=== PATIENT | male | born 1940 | race Caucasian/White ===

== ENCOUNTER 2017-06-18 17:59 | Inpatient (IN) ==
[2017-06-18] MEDS ORDERED: MORPHINE 2 MG/1 ML SYRINGE IM PRN (20:39)
[2017-06-18] MEDS ORDERED: ONDANSETRON 4 MG/2 ML VIAL IV PRN (20:43)
[2017-06-18] MEDS ORDERED: METOPROLOL TARTRATE 5 MG/5 ML VIAL IV PRN ×2 (20:44)
[2017-06-18] MEDS: SODIUM CHLORIDE 0.9% 1,000 ML IV SCH (21:30)
[2017-06-18] MEDS: MORPHINE 2 MG/1 ML SYRINGE IV PRN (23:45)
[2017-06-19 04:32] LABS: Basophils # 0.1 10*3/uL (0.0-0.2); Basophils % 0.3 % (0.0-0.8); Eosinophils % 0.1 % (0.00-10.9); Hematocrit 29.2 VOL% (42.0-52.0); Hemoglobin 8.7 GM/DL (14.0-18.0); Immature Granulocytes % 1.6 %; Immature Granulocytes Absolute 0.28 #; Lymphocytes # 1.3 10*3/uL (1.4-4.0); Lymphocytes % 7.3 % (21.2-54.2); Mean Corpuscular HGB Conc 29.8 GM/DL (32-36); Mean Corpuscular Hemoglobin 22 PG (27-34); Mean Corpuscular Volume 72.6 FL (87-102); Mean Platelet Volume 9.7 FL (9.6-12.0); Monocytes # 1.4 10*3/uL (0.11-0.8); Monocytes % 7.7 % (1.7-12.7); Neutrophils # 14.8 10*3/uL (1.4-7.4); Platelet Count 489 T/CUMM (130-400); Red Blood Count 4.02 MC/CUMM (3.8-5.5); White Blood Count 17.8 T/CUMM (4-12)
[2017-06-19] MEDS: MORPHINE 2 MG/1 ML SYRINGE IV PRN ×2 (04:45→20:55)
[2017-06-19 05:04] LABS: Anisocytosis 1+; Band Neutrophils 4 % (0-10); Lymphocytes 10 % (20-55); Platelet Estimate Normal; Segmented Neutrophils 84 % (50-85); Total Cells Counted 100
[2017-06-19 05:05] LABS: Atypical Lymphocytes Few; Microcytosis 3+; Polychromasia Slight
[2017-06-19 05:07] LABS: Bilirubin,Total 0.7 MG/DL (0.2-1.0); Calcium 8.3 MG/DL (8.5-10.1); Osmolality,Calculated 261.4 MOS/KG (273-304); Potassium 3.6 MMOL/L (3.5-5.1); Total Protein 5.7 G/DL (6.4-8.3)
[2017-06-19] MEDS ORDERED: VANCOMYCIN INJ 1,000 MG in SODIUM CHLORIDE 0.9% 250 ML IV ONE (06:00)
[2017-06-19] MEDS ORDERED: ALPRAZolam 0.5 MG TABLET PO PRN (08:35)
[2017-06-19] MEDS ORDERED: NITROGLYCERIN SL 0.4 MG TABLET SL PRN (08:35)
[2017-06-19] MEDS ORDERED: TAMSULOSIN 0.4 MG CAPSULE PO SCH (09:00)
[2017-06-19] MEDS ORDERED: CARVEDILOL 6.25 MG TABLET PO SCH (09:00)
[2017-06-19] MEDS ORDERED: ALBUTEROL 2.5 MG/3 ML NEB RESP TX PRN (09:10)
[2017-06-19] MEDS ORDERED: guaiFENesin/CODEINE 5 ML LIQUID PO PRN (09:10)
[2017-06-19 09:23] LABS: Troponin I Only 0.023 NG/ML (0.00-0.045)
[2017-06-19] MEDS ORDERED: PANTOPRAZOLE 40 MG VIAL IV ONE (09:34)
[2017-06-19] MEDS: LEVOFLOXACIN INJ 750 MG in PREMIX 1 EACH IV SCH (09:46)
[2017-06-19] MEDS: ALBUTEROL/IPRATROPIUM 3 ML NEB RESP TX SCH ×2 (12:01→20:27)
[2017-06-19] MEDS: PIPERACILLIN/TAZOBACTAM 3,375 MG in SODIUM CHLORIDE 0.9% 100 ML IV SCH ×2 (12:29→23:00)
[2017-06-19] MEDS ORDERED: HEPARIN 5,000 UNIT/1 ML VIAL ONE ×2 (12:37→17:41)
[2017-06-19] MEDS ORDERED: LIDOCAINE 2% TOP JELLY 20 ML VIAL INTRAURETH ONE (12:37)
[2017-06-19] MEDS ORDERED: VANCOMYCIN 500 MG VIAL ONE ×2 (12:37→17:41)
[2017-06-19] MEDS ORDERED: TISSUE ADHESIVE 1 EACH APPLICATOR TOP ONE (12:37)
[2017-06-19] MEDS ORDERED: THROMBIN TOPICAL (RECOMBINANT) 5,000 UNIT VIAL TOP ONE ×2 (12:38→17:41)
[2017-06-19] MEDS ORDERED: HEPARIN/NACL 0.9% 2 UNITS/ML 3,000 ML IV ONE (12:49)
[2017-06-19] MEDS ORDERED: SODIUM CHLORIDE 0.9% 1,000 ML IV PRN (14:18)
[2017-06-19] MEDS ORDERED: IPRATROPIUM 500 MCG/2.5 ML NEB RESP TX PRN (16:08)
[2017-06-19 17:00] LABS: Hemoglobin 7.9 GM/DL (14.0-18.0)
[2017-06-19] MEDS ORDERED: HYDROmorphone 2 MG/1 ML VIAL ONE (17:01)
[2017-06-19] MEDS ORDERED: ONDANSETRON 4 MG/2 ML VIAL ONE ×3 (17:01→19:53)
[2017-06-19] MEDS: CARVEDILOL 6.25 MG TABLET PO SCH ×2 (17:05→22:47)
[2017-06-19] MEDS: ASPIRIN EC 81 MG TABLET PO SCH (17:05)
[2017-06-19] MEDS: TAMSULOSIN 0.4 MG CAPSULE PO SCH (17:06)
[2017-06-19] MEDS: buPROPion 75 MG TABLET PO SCH ×2 (17:06→22:47)
[2017-06-19] MEDS ORDERED: HYDROmorphone 2 MG/1 ML VIAL IV PRN (17:11)
[2017-06-19] MEDS ORDERED: ONDANSETRON 4 MG/2 ML VIAL IV PRN (17:11)
[2017-06-19] MEDS ORDERED: HEPARIN 10,000 UNIT/10 ML VIAL ONE ×2 (17:31→19:53)
[2017-06-19] MEDS ORDERED: fentaNYL 100 MCG/2 ML VIAL ONE ×2 (17:31→19:53)
[2017-06-19] MEDS ORDERED: PHENYLEPHRINE 10 MG/1 ML VIAL IV ONE ×2 (17:31→19:53)
[2017-06-19] MEDS ORDERED: MIDAZOLAM 2 MG/2 ML VIAL ONE (17:31)
[2017-06-19] MEDS ORDERED: PROPOFOL 200 MG/20 ML VIAL IV ONE ×2 (17:31→19:52)
[2017-06-19] MEDS ORDERED: SODIUM CHLORIDE 0.9% 2,000 ML IV ONE (17:32)
[2017-06-19] MEDS ORDERED: PROTAMINE SULFATE 50 MG/5 ML VIAL IV ONE ×2 (17:32→19:53)
[2017-06-19] MEDS ORDERED: SEVOFLURANE 1 UNIT/15 MINUTE INH ONE ×2 (17:32→19:53)
[2017-06-19] MEDS ORDERED: SODIUM CHLORIDE 0.9% 250 ML IV ONE ×2 (17:32→19:53)
[2017-06-19] MEDS ORDERED: ALBUTEROL/IPRATROPIUM 3 ML NEB RESP TX ONE ×2 (19:52→19:55)
[2017-06-19] MEDS ORDERED: GLYCOPYRROLATE 0.4 MG/2 ML VIAL ONE ×2 (19:53)
[2017-06-19] MEDS ORDERED: ROCURONIUM 100 MG/10 ML VIAL IV ONE (19:53)
[2017-06-19] MEDS ORDERED: NEOSTIGMINE 10 MG/10 ML VIAL ONE (19:53)
[2017-06-19] MEDS: SODIUM CHLORIDE 0.9% 1,000 ML IV SCH (22:28)
[2017-06-19] MEDS: PANTOPRAZOLE 40 MG TABLET PO SCH (22:47)
[2017-06-19] MEDS: DEXTROSE 5% NACL 0.45% 1,000 ML IV SCH (22:47)
[2017-06-19] MEDS: ATORVASTATIN 10 MG TABLET PO SCH (22:47)
[2017-06-20] MEDS: ALBUTEROL/IPRATROPIUM 3 ML NEB RESP TX SCH ×4 (00:03→19:38)
[2017-06-20 05:20] LABS: Calcium 7.2 MG/DL (8.5-10.1); Osmolality,Calculated 274.7 MOS/KG (273-304)
[2017-06-20 05:25] LABS: VLDL CHOLESTEROL 17.4 MG/DL
[2017-06-20 05:35] LABS: Basophils % 0.2 % (0.0-0.8); Eosinophils % 0.2 % (0.00-10.9); Hematocrit 26.5 VOL% (42.0-52.0); Hemoglobin 7.8 GM/DL (14.0-18.0); Immature Granulocytes % 1.4 %; Immature Granulocytes Absolute 0.23 #; Lymphocytes # 1.1 10*3/uL (1.4-4.0); Lymphocytes % 6.6 % (21.2-54.2); Mean Corpuscular HGB Conc 29.4 GM/DL (32-36); Mean Corpuscular Hemoglobin 22 PG (27-34); Mean Corpuscular Volume 75.1 FL (87-102); Mean Platelet Volume 9.9 FL (9.6-12.0); Monocytes # 1.4 10*3/uL (0.11-0.8); Monocytes % 8.6 % (1.7-12.7); NRBC # 0.02 10*3/uL; Neutrophils # 13.4 10*3/uL (1.4-7.4); Platelet Count 385 T/CUMM (130-400); Red Blood Count 3.53 MC/CUMM (3.8-5.5); Red Cell Distribution Width 24.2 % (9.3-17.3); White Blood Count 16.1 T/CUMM (4-12)
[2017-06-20 05:42] LABS: Giant Platelets Few; Hypochromasia 1+; Ovalocytes Slight; Platelet Estimate Adequate
[2017-06-20 05:43] LABS: Microcytosis Slight
[2017-06-20] MEDS: PIPERACILLIN/TAZOBACTAM 3,375 MG in SODIUM CHLORIDE 0.9% 100 ML IV SCH ×3 (06:11→23:54)
[2017-06-20] MEDS: DEXTROSE 5% NACL 0.45% 1,000 ML IV SCH (07:00)
[2017-06-20] MEDS ORDERED: ACLIDINIUM BROMIDE 400 MCG IH SCH (09:00)
[2017-06-20] MEDS: CLOPIDOGREL 75 MG TABLET PO SCH (09:09)
[2017-06-20] MEDS: buPROPion 75 MG TABLET PO SCH ×2 (09:09→20:28)
[2017-06-20] MEDS: PANTOPRAZOLE 40 MG TABLET PO SCH ×2 (09:09→20:28)
[2017-06-20] MEDS: ASPIRIN EC 81 MG TABLET PO SCH (09:09)
[2017-06-20] MEDS: CARVEDILOL 6.25 MG TABLET PO SCH (09:09)
[2017-06-20] MEDS: LEVOFLOXACIN INJ 750 MG in PREMIX 1 EACH IV SCH (09:09)
[2017-06-20] MEDS: TAMSULOSIN 0.4 MG CAPSULE PO SCH ×2 (09:09→09:31)
[2017-06-20] MEDS: ATORVASTATIN 10 MG TABLET PO SCH (20:28)
[2017-06-20] MEDS: CARVEDILOL 3.125 MG TABLET PO SCH (20:28)
[2017-06-21] MEDS: ALBUTEROL/IPRATROPIUM 3 ML NEB RESP TX SCH ×4 (01:37→19:47)
[2017-06-21 05:17] LABS: Basophils % 0.3 % (0.0-0.8); Eosinophils % 0.1 % (0.00-10.9); Hematocrit 24.9 VOL% (42.0-52.0); Immature Granulocytes % 1.2 %; Immature Granulocytes Absolute 0.17 #; Lymphocytes % 7.4 % (21.2-54.2); Mean Corpuscular HGB Conc 28.1 GM/DL (32-36); Mean Corpuscular Hemoglobin 21 PG (27-34); Mean Corpuscular Volume 76.1 FL (87-102); Mean Platelet Volume 9.9 FL (9.6-12.0); Monocytes # 1.1 10*3/uL (0.11-0.8); Monocytes % 7.8 % (1.7-12.7); NRBC # 0.03 10*3/uL; Neutrophils # 11.6 10*3/uL (1.4-7.4); Neutrophils % 83.2 % (38.7-73.9); Platelet Count 314 T/CUMM (130-400); Red Blood Count 3.27 MC/CUMM (3.8-5.5); Red Cell Distribution Width 24.1 % (9.3-17.3); White Blood Count 13.9 T/CUMM (4-12)
[2017-06-21] MEDS: PIPERACILLIN/TAZOBACTAM 3,375 MG in SODIUM CHLORIDE 0.9% 100 ML IV SCH ×2 (06:40→16:22)
[2017-06-21] MEDS ORDERED: FUROSEMIDE 20 MG/2 ML VIAL IV ONE (09:03)
[2017-06-21] MEDS: CARVEDILOL 3.125 MG TABLET PO SCH (09:22)
[2017-06-21] MEDS: TAMSULOSIN 0.4 MG CAPSULE PO SCH (10:05)
[2017-06-21] MEDS: PANTOPRAZOLE 40 MG TABLET PO SCH ×2 (10:05→21:22)
[2017-06-21] MEDS: ASPIRIN EC 81 MG TABLET PO SCH (10:05)
[2017-06-21] MEDS: MULTIVITAMIN (INTRINSIC) CAPSULE PO SCH (10:05)
[2017-06-21] MEDS: CLOPIDOGREL 75 MG TABLET PO SCH (10:05)
[2017-06-21] MEDS: LEVOFLOXACIN 750 MG TABLET PO SCH (10:05)
[2017-06-21] MEDS: buPROPion 75 MG TABLET PO SCH ×2 (10:05→21:22)
[2017-06-21] MEDS: ATORVASTATIN 10 MG TABLET PO SCH (21:21)
[2017-06-21] MEDS: NIACIN 500 MG TABLET PO SCH (21:21)
[2017-06-22] MEDS: PIPERACILLIN/TAZOBACTAM 3,375 MG in SODIUM CHLORIDE 0.9% 100 ML IV SCH ×3 (01:00→17:13)
[2017-06-22] MEDS: ALBUTEROL/IPRATROPIUM 3 ML NEB RESP TX SCH ×4 (01:59→19:33)
[2017-06-22 05:12] LABS: Basophils % 0.2 % (0.0-0.8); Eosinophils % 0.1 % (0.00-10.9); Hematocrit 30.5 VOL% (42.0-52.0); Hemoglobin 9.5 GM/DL (14.0-18.0); Immature Granulocytes % 0.8 %; Lymphocytes # 0.9 10*3/uL (1.4-4.0); Lymphocytes % 6.7 % (21.2-54.2); Mean Corpuscular HGB Conc 31.1 GM/DL (32-36); Mean Corpuscular Hemoglobin 23 PG (27-34); Mean Corpuscular Volume 74.2 FL (87-102); Mean Platelet Volume 10.1 FL (9.6-12.0); Monocytes # 0.8 10*3/uL (0.11-0.8); Monocytes % 6.4 % (1.7-12.7); NRBC # 0.02 10*3/uL; Neutrophils # 11.2 10*3/uL (1.4-7.4); Neutrophils % 85.8 % (38.7-73.9); Platelet Count 336 T/CUMM (130-400); Red Blood Count 4.11 MC/CUMM (3.8-5.5); Red Cell Distribution Width 22.7 % (9.3-17.3); White Blood Count 13.1 T/CUMM (4-12)
[2017-06-22 05:39] LABS: Calcium 7.6 MG/DL (8.5-10.1); Potassium 3.5 MMOL/L (3.5-5.1)
[2017-06-22 05:48] LABS: Giant Platelets Few; Hypochromasia 1+; Microcytosis Slight; Ovalocytes Slight; Platelet Estimate Adequate
[2017-06-22] MEDS: TAMSULOSIN 0.4 MG CAPSULE PO SCH (08:58)
[2017-06-22] MEDS: ASPIRIN EC 81 MG TABLET PO SCH (08:58)
[2017-06-22] MEDS: LEVOFLOXACIN 750 MG TABLET PO SCH (08:58)
[2017-06-22] MEDS: buPROPion 75 MG TABLET PO SCH ×2 (08:59→21:20)
[2017-06-22] MEDS: MULTIVITAMIN (INTRINSIC) CAPSULE PO SCH (08:59)
[2017-06-22] MEDS: CLOPIDOGREL 75 MG TABLET PO SCH (08:59)
[2017-06-22] MEDS: PANTOPRAZOLE 40 MG TABLET PO SCH ×2 (08:59→21:20)
[2017-06-22] MEDS ORDERED: FUROSEMIDE 40 MG/4 ML VIAL IV ONE (13:00)
[2017-06-22] MEDS: NIACIN 500 MG TABLET PO SCH (21:20)
[2017-06-22] MEDS: ATORVASTATIN 10 MG TABLET PO SCH (21:20)
[2017-06-23] MEDS: ALBUTEROL/IPRATROPIUM 3 ML NEB RESP TX SCH ×4 (00:49→19:58)
[2017-06-23] MEDS: PIPERACILLIN/TAZOBACTAM 3,375 MG in SODIUM CHLORIDE 0.9% 100 ML IV SCH (07:05)
[2017-06-23] MEDS: CLOPIDOGREL 75 MG TABLET PO SCH (09:27)
[2017-06-23] MEDS: buPROPion 75 MG TABLET PO SCH ×2 (09:27→21:59)
[2017-06-23] MEDS: PANTOPRAZOLE 40 MG TABLET PO SCH ×2 (09:27→21:59)
[2017-06-23] MEDS: LEVOFLOXACIN 750 MG TABLET PO SCH (09:27)
[2017-06-23] MEDS: TAMSULOSIN 0.4 MG CAPSULE PO SCH (09:27)
[2017-06-23] MEDS: ASPIRIN EC 81 MG TABLET PO SCH (09:27)
[2017-06-23] MEDS: MULTIVITAMIN (INTRINSIC) CAPSULE PO SCH (09:27)
[2017-06-23] MEDS: cefTRIAXone 1,000 MG in SYRINGE 1 EACH IV SCH (11:35)
[2017-06-23] MEDS: NIACIN 500 MG TABLET PO SCH (21:59)
[2017-06-23] MEDS: ATORVASTATIN 10 MG TABLET PO SCH (21:59)
[2017-06-24] MEDS: ALBUTEROL/IPRATROPIUM 3 ML NEB RESP TX SCH ×4 (01:47→20:22)
[2017-06-24 03:51] LABS: Basophils % 0.3 % (0.0-0.8); Eosinophils % 0.3 % (0.00-10.9); Hematocrit 31.8 VOL% (42.0-52.0); Hemoglobin 9.4 GM/DL (14.0-18.0); Immature Granulocytes % 1.4 %; Immature Granulocytes Absolute 0.15 #; Lymphocytes # 0.9 10*3/uL (1.4-4.0); Lymphocytes % 7.8 % (21.2-54.2); Mean Corpuscular HGB Conc 29.6 GM/DL (32-36); Mean Corpuscular Hemoglobin 22 PG (27-34); Mean Corpuscular Volume 74.5 FL (87-102); Mean Platelet Volume 9.6 FL (9.6-12.0); Monocytes # 0.8 10*3/uL (0.11-0.8); Monocytes % 6.9 % (1.7-12.7); Neutrophils # 9.1 10*3/uL (1.4-7.4); Neutrophils % 83.3 % (38.7-73.9); Platelet Count 315 T/CUMM (130-400); Red Blood Count 4.27 MC/CUMM (3.8-5.5); Red Cell Distribution Width 24.3 % (9.3-17.3); White Blood Count 10.9 T/CUMM (4-12)
[2017-06-24 04:14] LABS: Anisocytosis 2+; Hypochromasia 3+
[2017-06-24 04:15] LABS: Poikilocytosis 1+; Target Cells 1+
[2017-06-24 04:16] LABS: Polychromasia Slight
[2017-06-24 04:25] LABS: Osmolality,Calculated 263.2 MOS/KG (273-304); Potassium 3.4 MMOL/L (3.5-5.1)
[2017-06-24] MEDS: LEVOFLOXACIN 750 MG TABLET PO SCH (08:58)
[2017-06-24] MEDS: TAMSULOSIN 0.4 MG CAPSULE PO SCH (08:58)
[2017-06-24] MEDS: ASPIRIN EC 81 MG TABLET PO SCH (08:58)
[2017-06-24] MEDS: CLOPIDOGREL 75 MG TABLET PO SCH (08:58)
[2017-06-24] MEDS: buPROPion 75 MG TABLET PO SCH ×2 (08:59→20:50)
[2017-06-24] MEDS: MULTIVITAMIN (INTRINSIC) CAPSULE PO SCH (08:59)
[2017-06-24] MEDS: PANTOPRAZOLE 40 MG TABLET PO SCH ×2 (08:59→20:51)
[2017-06-24] MEDS: cefTRIAXone 1,000 MG in SYRINGE 1 EACH IV SCH (11:13)
[2017-06-24] MEDS: VANCOMYCIN INJ 1,250 MG in SODIUM CHLORIDE 0.9% 250 ML IV SCH (16:52)
[2017-06-24] MEDS ORDERED: POTASSIUM CHLORIDE 20 MEQ PACK PO ONE (17:14)
[2017-06-24] MEDS: ATORVASTATIN 10 MG TABLET PO SCH (20:50)
[2017-06-24] MEDS: NIACIN 500 MG TABLET PO SCH (20:51)
[2017-06-25] MEDS: ALBUTEROL/IPRATROPIUM 3 ML NEB RESP TX SCH ×4 (01:36→20:04)
[2017-06-25] MEDS: VANCOMYCIN INJ 1,250 MG in SODIUM CHLORIDE 0.9% 250 ML IV SCH ×2 (07:30→18:14)
[2017-06-25] MEDS: LEVOFLOXACIN 750 MG TABLET PO SCH (08:38)
[2017-06-25] MEDS: MULTIVITAMIN (INTRINSIC) CAPSULE PO SCH (08:38)
[2017-06-25] MEDS: PANTOPRAZOLE 40 MG TABLET PO SCH ×2 (08:38→20:06)
[2017-06-25] MEDS: CLOPIDOGREL 75 MG TABLET PO SCH (08:38)
[2017-06-25] MEDS: buPROPion 75 MG TABLET PO SCH ×2 (08:38→20:06)
[2017-06-25] MEDS: TAMSULOSIN 0.4 MG CAPSULE PO SCH (08:38)
[2017-06-25] MEDS: ASPIRIN EC 81 MG TABLET PO SCH (08:38)
[2017-06-25 10:50] LABS: Calcium 7.9 MG/DL (8.5-10.1); Osmolality,Calculated 267.1 MOS/KG (273-304); Potassium 3.2 MMOL/L (3.5-5.1)
[2017-06-25 11:07] LABS: Basophils % 0.4 % (0.0-0.8); Eosinophils # 0.1 10*3/uL (0.0-0.87); Eosinophils % 0.7 % (0.00-10.9); Hematocrit 32.2 VOL% (42.0-52.0); Hemoglobin 9.9 GM/DL (14.0-18.0); Immature Granulocytes % 1.3 %; Immature Granulocytes Absolute 0.14 #; Lymphocytes # 0.7 10*3/uL (1.4-4.0); Lymphocytes % 6.3 % (21.2-54.2); Mean Corpuscular HGB Conc 30.7 GM/DL (32-36); Mean Corpuscular Hemoglobin 23 PG (27-34); Mean Corpuscular Volume 74.4 FL (87-102); Mean Platelet Volume 9.6 FL (9.6-12.0); Monocytes % 9.4 % (1.7-12.7); Neutrophils # 8.9 10*3/uL (1.4-7.4); Neutrophils % 81.9 % (38.7-73.9); Platelet Count 354 T/CUMM (130-400); Red Blood Count 4.33 MC/CUMM (3.8-5.5); Red Cell Distribution Width 24.2 % (9.3-17.3); White Blood Count 10.8 T/CUMM (4-12)
[2017-06-25 11:25] LABS: Hypochromasia 2+; Microcytosis 1+; Target Cells Slight
[2017-06-25 11:26] LABS: Ovalocytes Slight; Platelet Estimate Normal; Spherocytes Few
[2017-06-25] MEDS ORDERED: FUROSEMIDE 20 MG/2 ML VIAL IV ONE (11:32)
[2017-06-25] MEDS: cefTRIAXone 1,000 MG in SYRINGE 1 EACH IV SCH (11:45)
[2017-06-25] MEDS: POTASSIUM CHLORIDE 20 MEQ TABLET PO PRN ×3 (12:55→22:32)
[2017-06-25] MEDS: ATORVASTATIN 10 MG TABLET PO SCH (20:06)
[2017-06-25] MEDS: NIACIN 500 MG TABLET PO SCH (20:06)
[2017-06-26] MEDS: POTASSIUM CHLORIDE 20 MEQ TABLET PO PRN ×2 (00:38→02:37)
[2017-06-26] MEDS: ALBUTEROL/IPRATROPIUM 3 ML NEB RESP TX SCH ×2 (00:58→08:13)
[2017-06-26] MEDS: VANCOMYCIN INJ 1,250 MG in SODIUM CHLORIDE 0.9% 250 ML IV SCH (06:25)
[2017-06-26] MEDS ORDERED: BISACODYL 5 MG TABLET PO ONE (08:23)
[2017-06-26] MEDS: CLOPIDOGREL 75 MG TABLET PO SCH (09:16)
[2017-06-26] MEDS: MULTIVITAMIN (INTRINSIC) CAPSULE PO SCH (09:16)
[2017-06-26] MEDS: LEVOFLOXACIN 750 MG TABLET PO SCH (09:16)
[2017-06-26] MEDS: ASPIRIN EC 81 MG TABLET PO SCH (09:16)
[2017-06-26] MEDS: PANTOPRAZOLE 40 MG TABLET PO SCH (09:17)
[2017-06-26] MEDS: buPROPion 75 MG TABLET PO SCH (09:17)
[2017-06-26] MEDS: TAMSULOSIN 0.4 MG CAPSULE PO SCH (09:17)
[2017-06-26 10:59] VITALS: BP 135/54
== END 2017-06-26 12:37 | disposition swing bed (61) | DRG 268 ==
LOC: N.CC 19:39 → SUPCPDRO 19:39 → N.3E 06-20 23:32
PROVIDERS: ADMIT Surgery; ATTEND Surgery
PROC: IRERAAA (2017-06-19 13:05)

== ENCOUNTER 2017-07-03 09:32 | Inpatient (IN) ==
[2017-07-03 14:19] LABS: Basophils % 0.3 % (0.0-0.8); Eosinophils # 0.1 10*3/uL (0.0-0.87); Eosinophils % 0.5 % (0.00-10.9); Hemoglobin 9.8 GM/DL (14.0-18.0); Immature Granulocytes Absolute 0.13 #; Lymphocytes # 1.2 10*3/uL (1.4-4.0); Lymphocytes % 8.9 % (21.2-54.2); Mean Corpuscular HGB Conc 30.6 GM/DL (32-36); Mean Corpuscular Hemoglobin 23 PG (27-34); Mean Corpuscular Volume 74.4 FL (87-102); Mean Platelet Volume 8.4 FL (9.6-12.0); Monocytes # 1.2 10*3/uL (0.11-0.8); Monocytes % 8.6 % (1.7-12.7); Neutrophils # 10.9 10*3/uL (1.4-7.4); Neutrophils % 80.7 % (38.7-73.9); Platelet Count 517 T/CUMM (130-400); Red Cell Distribution Width 24.5 % (9.3-17.3); White Blood Count 13.5 T/CUMM (4-12)
[2017-07-03 14:46] LABS: Albumin 2.3 G/DL (3.4-5.0); Bilirubin,Total 0.6 MG/DL (0.2-1.0); Calcium 8.3 MG/DL (8.5-10.1); Osmolality,Calculated 263.4 MOS/KG (273-304); Potassium 3.7 MMOL/L (3.5-5.1); Total Protein 7.1 G/DL (6.4-8.3)
[2017-07-03 15:01] LABS: Apearance,Urine Slightly Hazy (Clear); Bilirubin,Urine Negative (Negative); Blood, Urine Negative (Negative); Glucose,Urine (UA) Negative (Negative); Ketones,Urine Negative (Negative); Mucus,Urine Many /LPF (Occasional); Nitrite,Urine Negative (Negative); Protein,Urine Negative; Urine Color Yellow (Yellow); Urine Specific Gravity 1.019 (1.001-1.035); Urine Urobilinogen < 2.0 EU/DL (0.2-1.0); WBC,Urine 3 /HPF (0-6)
[2017-07-03] MEDS: FLUCONAZOLE INJ 100 MG in IV BAG 1 EACH IV SCH (16:44)
[2017-07-03] MEDS: SODIUM CHLORIDE 0.9% 1,000 ML IV SCH (16:44)
[2017-07-03] MEDS ORDERED: POTASSIUM CHLORIDE 20 MEQ TABLET PO PRN (17:11)
[2017-07-03] MEDS ORDERED: IPRATROPIUM 500 MCG/2.5 ML NEB RESP TX PRN (17:11)
[2017-07-03] MEDS ORDERED: ALBUTEROL 2.5 MG/3 ML NEB RESP TX PRN (17:11)
[2017-07-03] MEDS ORDERED: NITROGLYCERIN SL 0.4 MG TABLET SL PRN (17:11)
[2017-07-03] MEDS ORDERED: ALPRAZolam 0.5 MG TABLET PO PRN (17:11)
[2017-07-03] MEDS ORDERED: chlordiazePOXIDE 10 MG CAPSULE PO PRN (17:30)
[2017-07-03] MEDS: VANCOMYCIN INJ 1,250 MG in SODIUM CHLORIDE 0.9% 250 ML IV SCH (18:01)
[2017-07-03] MEDS: PANTOPRAZOLE 40 MG TABLET PO SCH (22:25)
[2017-07-03] MEDS: chlordiazePOXIDE 10 MG CAPSULE PO SCH (22:25)
[2017-07-03] MEDS: ATORVASTATIN 10 MG TABLET PO SCH (22:25)
[2017-07-03] MEDS: buPROPion 75 MG TABLET PO SCH (22:25)
[2017-07-04] MEDS: VANCOMYCIN INJ 1,250 MG in SODIUM CHLORIDE 0.9% 250 ML IV SCH ×2 (06:16→17:30)
[2017-07-04 06:20] LABS: Basophils # 0.1 10*3/uL (0.0-0.2); Basophils % 0.4 % (0.0-0.8); Eosinophils # 0.1 10*3/uL (0.0-0.87); Eosinophils % 0.7 % (0.00-10.9); Hematocrit 29.7 VOL% (42.0-52.0); Immature Granulocytes % 0.8 %; Immature Granulocytes Absolute 0.11 #; Lymphocytes # 1.1 10*3/uL (1.4-4.0); Lymphocytes % 8.1 % (21.2-54.2); Mean Corpuscular HGB Conc 30.3 GM/DL (32-36); Mean Corpuscular Hemoglobin 23 PG (27-34); Mean Corpuscular Volume 75.6 FL (87-102); Mean Platelet Volume 8.7 FL (9.6-12.0); Monocytes # 1.2 10*3/uL (0.11-0.8); Monocytes % 8.7 % (1.7-12.7); Neutrophils # 11.3 10*3/uL (1.4-7.4); Neutrophils % 81.3 % (38.7-73.9); Platelet Count 486 T/CUMM (130-400); Red Blood Count 3.93 MC/CUMM (3.8-5.5); Red Cell Distribution Width 24.5 % (9.3-17.3); White Blood Count 13.9 T/CUMM (4-12)
[2017-07-04 06:47] LABS: Giant Platelets Few; Hypochromasia 1+; Microcytosis Slight; Ovalocytes Slight; Platelet Estimate Adequate
[2017-07-04 07:03] LABS: Calcium 8.1 MG/DL (8.5-10.1); Potassium 3.9 MMOL/L (3.5-5.1); Thyroid Stimulating Hormone 1.56 uIU/ml (0.358-3.74)
[2017-07-04] MEDS: TAMSULOSIN 0.4 MG CAPSULE PO SCH (08:48)
[2017-07-04] MEDS: CLOPIDOGREL 75 MG TABLET PO SCH (08:48)
[2017-07-04] MEDS: ASPIRIN EC 81 MG TABLET PO SCH (08:48)
[2017-07-04] MEDS: chlordiazePOXIDE 10 MG CAPSULE PO SCH ×3 (08:49→21:52)
[2017-07-04] MEDS: PANTOPRAZOLE 40 MG TABLET PO SCH ×2 (08:49→21:52)
[2017-07-04] MEDS: buPROPion 75 MG TABLET PO SCH ×2 (08:49→21:52)
[2017-07-04] MEDS: SODIUM CHLORIDE 0.9% 1,000 ML IV SCH (11:18)
[2017-07-04] MEDS: FLUCONAZOLE INJ 100 MG in IV BAG 1 EACH IV SCH (14:27)
[2017-07-04] MEDS: MULTIVITAMIN (INTRINSIC) CAPSULE PO SCH (17:29)
[2017-07-04] MEDS: ATORVASTATIN 10 MG TABLET PO SCH (21:52)
[2017-07-04] MEDS: NIACIN 500 MG TABLET PO SCH (21:52)
[2017-07-04] MEDS: BUDESONIDE/FORMOTEROL 160-4.5 INHALER 6 GM INH SCH (21:53)
[2017-07-05] MEDS: VANCOMYCIN INJ 1,250 MG in SODIUM CHLORIDE 0.9% 250 ML IV SCH ×2 (05:25→19:08)
[2017-07-05] MEDS: SODIUM CHLORIDE 0.9% 1,000 ML IV SCH ×2 (05:27→07:27)
[2017-07-05] MEDS: MULTIVITAMIN (INTRINSIC) CAPSULE PO SCH (08:32)
[2017-07-05] MEDS: chlordiazePOXIDE 10 MG CAPSULE PO SCH ×3 (08:32→21:30)
[2017-07-05] MEDS: BUDESONIDE/FORMOTEROL 160-4.5 INHALER 6 GM INH SCH ×2 (08:32→21:29)
[2017-07-05] MEDS: PANTOPRAZOLE 40 MG TABLET PO SCH ×2 (08:32→21:29)
[2017-07-05] MEDS: buPROPion 75 MG TABLET PO SCH ×2 (08:32→21:29)
[2017-07-05] MEDS: TAMSULOSIN 0.4 MG CAPSULE PO SCH (08:32)
[2017-07-05] MEDS: CLOPIDOGREL 75 MG TABLET PO SCH (08:32)
[2017-07-05] MEDS: ASPIRIN EC 81 MG TABLET PO SCH (08:32)
[2017-07-05] MEDS: FLUCONAZOLE INJ 100 MG in IV BAG 1 EACH IV SCH (14:40)
[2017-07-05] MEDS: NIACIN 500 MG TABLET PO SCH (21:28)
[2017-07-05] MEDS: ATORVASTATIN 10 MG TABLET PO SCH (21:29)
[2017-07-06] MEDS: VANCOMYCIN INJ 1,250 MG in SODIUM CHLORIDE 0.9% 250 ML IV SCH ×2 (06:24→18:22)
[2017-07-06 06:41] LABS: Basophils # 0.1 10*3/uL (0.0-0.2); Basophils % 0.4 % (0.0-0.8); Eosinophils # 0.1 10*3/uL (0.0-0.87); Eosinophils % 0.7 % (0.00-10.9); Hematocrit 30.2 VOL% (42.0-52.0); Hemoglobin 9.1 GM/DL (14.0-18.0); Immature Granulocytes % 0.5 %; Immature Granulocytes Absolute 0.06 #; Lymphocytes # 1.1 10*3/uL (1.4-4.0); Lymphocytes % 9.1 % (21.2-54.2); Mean Corpuscular HGB Conc 30.1 GM/DL (32-36); Mean Corpuscular Hemoglobin 23 PG (27-34); Mean Corpuscular Volume 76.1 FL (87-102); Mean Platelet Volume 8.9 FL (9.6-12.0); Monocytes # 1.1 10*3/uL (0.11-0.8); Monocytes % 9.7 % (1.7-12.7); Neutrophils # 9.3 10*3/uL (1.4-7.4); Neutrophils % 79.6 % (38.7-73.9); Platelet Count 440 T/CUMM (130-400); Red Blood Count 3.97 MC/CUMM (3.8-5.5); Red Cell Distribution Width 24.4 % (9.3-17.3); White Blood Count 11.7 T/CUMM (4-12)
[2017-07-06 07:07] LABS: Giant Platelets Few; Hypochromasia 1+; Microcytosis Slight; Ovalocytes Slight; Platelet Estimate Adequate
[2017-07-06 07:17] LABS: Calcium 7.9 MG/DL (8.5-10.1); Osmolality,Calculated 272.7 MOS/KG (273-304); Potassium 3.6 MMOL/L (3.5-5.1)
[2017-07-06] MEDS: PANTOPRAZOLE 40 MG TABLET PO SCH ×2 (09:51→21:10)
[2017-07-06] MEDS: TAMSULOSIN 0.4 MG CAPSULE PO SCH (09:51)
[2017-07-06] MEDS: ASPIRIN EC 81 MG TABLET PO SCH (09:51)
[2017-07-06] MEDS: CLOPIDOGREL 75 MG TABLET PO SCH (09:52)
[2017-07-06] MEDS: MULTIVITAMIN (INTRINSIC) CAPSULE PO SCH (09:52)
[2017-07-06] MEDS: BUDESONIDE/FORMOTEROL 160-4.5 INHALER 6 GM INH SCH ×2 (09:52→21:11)
[2017-07-06] MEDS: buPROPion 75 MG TABLET PO SCH ×2 (09:52→21:11)
[2017-07-06] MEDS: chlordiazePOXIDE 10 MG CAPSULE PO SCH (10:47)
[2017-07-06] MEDS: RIFAMPIN 300 MG CAPSULE PO SCH ×2 (12:42→21:10)
[2017-07-06] MEDS: NYSTATIN 500,000 UNIT/5 ML UDCUP SWISH/SWAL SCH ×4 (12:42→21:11)
[2017-07-06] MEDS: FLUCONAZOLE INJ 100 MG in IV BAG 1 EACH IV SCH (15:59)
[2017-07-06] MEDS: ATORVASTATIN 10 MG TABLET PO SCH (21:10)
[2017-07-06] MEDS: NIACIN 500 MG TABLET PO SCH (21:11)
[2017-07-07] MEDS: VANCOMYCIN INJ 1,250 MG in SODIUM CHLORIDE 0.9% 250 ML IV SCH ×2 (05:58→17:58)
[2017-07-07] MEDS: CLOPIDOGREL 75 MG TABLET PO SCH (10:52)
[2017-07-07] MEDS: RIFAMPIN 300 MG CAPSULE PO SCH ×2 (10:53→20:31)
[2017-07-07] MEDS: PANTOPRAZOLE 40 MG TABLET PO SCH ×2 (10:53→20:31)
[2017-07-07] MEDS: MULTIVITAMIN (INTRINSIC) CAPSULE PO SCH (10:53)
[2017-07-07] MEDS: buPROPion 75 MG TABLET PO SCH ×2 (10:53→20:31)
[2017-07-07] MEDS: ASPIRIN EC 81 MG TABLET PO SCH (10:53)
[2017-07-07] MEDS: TAMSULOSIN 0.4 MG CAPSULE PO SCH (10:54)
[2017-07-07] MEDS: NYSTATIN 500,000 UNIT/5 ML UDCUP SWISH/SWAL SCH ×4 (10:54→20:32)
[2017-07-07] MEDS: BUDESONIDE/FORMOTEROL 160-4.5 INHALER 6 GM INH SCH ×2 (14:46→20:34)
[2017-07-07] MEDS: QUEtiapine 25 MG TABLET PO SCH (20:31)
[2017-07-07] MEDS: NIACIN 500 MG TABLET PO SCH (20:31)
[2017-07-07] MEDS: ATORVASTATIN 10 MG TABLET PO SCH (20:31)
[2017-07-07] MEDS ORDERED: HALOPERIDOL 5 MG/ML AMP IM SCH (21:00)
[2017-07-08 06:28] LABS: Calcium 7.8 MG/DL (8.5-10.1); Osmolality,Calculated 273.5 MOS/KG (273-304)
[2017-07-08] MEDS: VANCOMYCIN INJ 1,250 MG in SODIUM CHLORIDE 0.9% 250 ML IV SCH (07:11)
[2017-07-08] MEDS ORDERED: POTASSIUM CHLORIDE 20 MEQ TABLET PO PRN (07:30)
[2017-07-08] MEDS: ASPIRIN EC 81 MG TABLET PO SCH (10:19)
[2017-07-08] MEDS: TAMSULOSIN 0.4 MG CAPSULE PO SCH (10:20)
[2017-07-08] MEDS: NYSTATIN 500,000 UNIT/5 ML UDCUP SWISH/SWAL SCH ×4 (10:20→20:45)
[2017-07-08] MEDS: CLOPIDOGREL 75 MG TABLET PO SCH (10:21)
[2017-07-08] MEDS: PANTOPRAZOLE 40 MG TABLET PO SCH ×2 (10:21→20:45)
[2017-07-08] MEDS: RIFAMPIN 300 MG CAPSULE PO SCH ×2 (10:21→20:45)
[2017-07-08] MEDS: BUDESONIDE/FORMOTEROL 160-4.5 INHALER 6 GM INH SCH ×2 (10:23→20:47)
[2017-07-08] MEDS: buPROPion 75 MG TABLET PO SCH ×2 (10:23→20:45)
[2017-07-08] MEDS: MULTIVITAMIN (INTRINSIC) CAPSULE PO SCH (10:23)
[2017-07-08] MEDS ORDERED: POTASSIUM CHLORIDE 20 MEQ TABLET PO ONE (16:00)
[2017-07-08] MEDS: ATORVASTATIN 10 MG TABLET PO SCH (20:45)
[2017-07-08] MEDS: NIACIN 500 MG TABLET PO SCH (20:45)
[2017-07-08] MEDS: QUEtiapine 25 MG TABLET PO SCH (20:45)
[2017-07-09] MEDS: VANCOMYCIN INJ 1,250 MG in SODIUM CHLORIDE 0.9% 250 ML IV SCH ×2 (00:20→18:04)
[2017-07-09 06:39] LABS: Basophils % 0.4 % (0.0-0.8); Eosinophils # 0.1 10*3/uL (0.0-0.87); Hematocrit 30.8 VOL% (42.0-52.0); Hemoglobin 9.4 GM/DL (14.0-18.0); Immature Granulocytes % 0.8 %; Immature Granulocytes Absolute 0.08 #; Lymphocytes # 1.1 10*3/uL (1.4-4.0); Mean Corpuscular HGB Conc 30.5 GM/DL (32-36); Mean Corpuscular Hemoglobin 23 PG (27-34); Mean Corpuscular Volume 74.6 FL (87-102); Mean Platelet Volume 8.7 FL (9.6-12.0); Monocytes % 9.8 % (1.7-12.7); Neutrophils # 7.7 10*3/uL (1.4-7.4); Platelet Count 339 T/CUMM (130-400); Red Blood Count 4.13 MC/CUMM (3.8-5.5); Red Cell Distribution Width 24.2 % (9.3-17.3)
[2017-07-09 07:10] LABS: Calcium 8.1 MG/DL (8.5-10.1); Osmolality,Calculated 270.7 MOS/KG (273-304); Potassium 3.8 MMOL/L (3.5-5.1)
[2017-07-09 07:12] LABS: Hypochromasia 1+; Ovalocytes Slight; Platelet Estimate Adequate
[2017-07-09 07:13] LABS: Giant Platelets Few; Microcytosis Slight
[2017-07-09] MEDS: RIFAMPIN 300 MG CAPSULE PO SCH ×2 (09:14→21:01)
[2017-07-09] MEDS: buPROPion 75 MG TABLET PO SCH ×2 (09:14→21:01)
[2017-07-09] MEDS: MULTIVITAMIN (INTRINSIC) CAPSULE PO SCH (09:14)
[2017-07-09] MEDS: PANTOPRAZOLE 40 MG TABLET PO SCH ×2 (09:14→21:01)
[2017-07-09] MEDS: ASPIRIN EC 81 MG TABLET PO SCH (09:15)
[2017-07-09] MEDS: NYSTATIN 500,000 UNIT/5 ML UDCUP SWISH/SWAL SCH ×4 (09:15→21:01)
[2017-07-09] MEDS: CLOPIDOGREL 75 MG TABLET PO SCH (09:15)
[2017-07-09] MEDS: TAMSULOSIN 0.4 MG CAPSULE PO SCH (09:15)
[2017-07-09] MEDS: BUDESONIDE/FORMOTEROL 160-4.5 INHALER 6 GM INH SCH ×2 (09:21→22:00)
[2017-07-09] MEDS ORDERED: TUBERCULIN SKIN TEST 0.1 ML SYRINGE INTRADERM ONE (10:00)
[2017-07-09] MEDS: ATORVASTATIN 10 MG TABLET PO SCH (21:00)
[2017-07-09] MEDS: NIACIN 500 MG TABLET PO SCH (21:00)
[2017-07-09] MEDS: QUEtiapine 25 MG TABLET PO SCH (21:01)
[2017-07-10 07:09] LABS: Calcium 8.1 MG/DL (8.5-10.1); Osmolality,Calculated 266.1 MOS/KG (273-304); Potassium 3.5 MMOL/L (3.5-5.1)
[2017-07-10] MEDS: PANTOPRAZOLE 40 MG TABLET PO SCH (09:21)
[2017-07-10] MEDS: RIFAMPIN 300 MG CAPSULE PO SCH (09:21)
[2017-07-10] MEDS: buPROPion 75 MG TABLET PO SCH (09:21)
[2017-07-10] MEDS: TAMSULOSIN 0.4 MG CAPSULE PO SCH (09:21)
[2017-07-10] MEDS: CLOPIDOGREL 75 MG TABLET PO SCH (09:22)
[2017-07-10] MEDS: ASPIRIN EC 81 MG TABLET PO SCH (09:22)
[2017-07-10] MEDS: MULTIVITAMIN (INTRINSIC) CAPSULE PO SCH (09:22)
[2017-07-10] MEDS: BUDESONIDE/FORMOTEROL 160-4.5 INHALER 6 GM INH SCH (09:29)
[2017-07-10] MEDS: NYSTATIN 500,000 UNIT/5 ML UDCUP SWISH/SWAL SCH ×2 (09:29→13:19)
[2017-07-10] MEDS: VANCOMYCIN INJ 1,250 MG in SODIUM CHLORIDE 0.9% 250 ML IV SCH (12:16)
[2017-07-10 13:39] VITALS: BP 104/58
== END 2017-07-10 15:55 | disposition swing bed (61) | DRG 871 ==
LOC: N.5E 13:30
PROVIDERS: ADMIT Surgery; ATTEND Surgery

== ENCOUNTER 2017-07-30 22:54 | Inpatient (IN) ==
[2017-07-30] MEDS ORDERED: SODIUM CHLORIDE 0.9% 1,000 ML IV STA (23:34)
[2017-07-30] MEDS ORDERED: ACETAMINOPHEN 325 MG TABLET PO ONE (23:34)
[2017-07-30] MEDS ORDERED: ACETAMINOPHEN 325 MG TABLET ONE (23:42)
[2017-07-31 00:07] LABS: Basophils % 0.2 % (0.0-0.8); Eosinophils % 0.1 % (0.00-10.9); Hematocrit 32.8 VOL% (42.0-52.0); Immature Granulocytes % 0.6 %; Mean Corpuscular HGB Conc 30.5 GM/DL (32-36); Mean Corpuscular Hemoglobin 23 PG (27-34); Mean Corpuscular Volume 76.6 FL (87-102); Mean Platelet Volume 9.1 FL (9.6-12.0); Monocytes # 0.9 10*3/uL (0.11-0.8); Monocytes % 5.3 % (1.7-12.7); Neutrophils # 14.1 10*3/uL (1.4-7.4); Neutrophils % 87.8 % (38.7-73.9); Platelet Count 301 T/CUMM (130-400); Red Blood Count 4.28 MC/CUMM (3.8-5.5); White Blood Count 16.1 T/CUMM (4-12)
[2017-07-31 00:34] LABS: Apearance,Urine CLEAR (Clear); Bilirubin,Urine Negative (Negative); Blood, Urine Negative (Negative); Glucose,Urine (UA) Negative (Negative); Ketones,Urine Negative (Negative); Mucus,Urine Occasional /LPF (Occasional); Nitrite,Urine Negative (Negative); Protein,Urine Negative; RBC,Urine <1 /HPF (0-4); Urine Color Yellow (Yellow); Urine Specific Gravity 1.012 (1.001-1.035); Urine Urobilinogen < 2.0 EU/DL (0.2-1.0); WBC,Urine 2 /HPF (0-6)
[2017-07-31 00:36] LABS: Albumin 2.3 G/DL (3.4-5.0); Bilirubin,Total 0.5 MG/DL (0.2-1.0); Calcium 8.3 MG/DL (8.5-10.1); Osmolality,Calculated 263.4 MOS/KG (273-304); Potassium 4.3 MMOL/L (3.5-5.1)
[2017-07-31] MEDS ORDERED: VANCOMYCIN INJ 1,000 MG in SODIUM CHLORIDE 0.9% 250 ML IV STA (01:11)
[2017-07-31] MEDS ORDERED: ONDANSETRON 4 MG/2 ML VIAL IV PRN (01:15)
[2017-07-31] MEDS ORDERED: ACETAMINOPHEN 325 MG TABLET PO PRN (01:15)
[2017-07-31 01:17] LABS: INR 1.1; PT Patient Result 11.4 SECS; Partial Thromboplastin Time 37.3 SECS (0-40)
[2017-07-31] MEDS ORDERED: VANCOMYCIN 1,000 MG VIAL ONE (01:18)
[2017-07-31 08:09] LABS: Basophils % 0.2 % (0.0-0.8); Eosinophils % 0.3 % (0.00-10.9); Hematocrit 32.4 VOL% (42.0-52.0); Hemoglobin 10.1 GM/DL (14.0-18.0); Immature Granulocytes % 0.5 %; Immature Granulocytes Absolute 0.08 #; Lymphocytes # 1.1 10*3/uL (1.4-4.0); Lymphocytes % 6.7 % (21.2-54.2); Mean Corpuscular HGB Conc 31.2 GM/DL (32-36); Mean Corpuscular Hemoglobin 24 PG (27-34); Mean Corpuscular Volume 76.1 FL (87-102); Mean Platelet Volume 8.9 FL (9.6-12.0); Monocytes % 6.4 % (1.7-12.7); Neutrophils # 13.6 10*3/uL (1.4-7.4); Neutrophils % 85.9 % (38.7-73.9); Platelet Count 281 T/CUMM (130-400); Red Blood Count 4.26 MC/CUMM (3.8-5.5); Red Cell Distribution Width 22.2 % (9.3-17.3); White Blood Count 15.9 T/CUMM (4-12)
[2017-07-31] MEDS: PANTOPRAZOLE 40 MG TABLET PO SCH ×2 (08:25→21:08)
[2017-07-31 08:28] LABS: Giant Platelets Few; Hypochromasia 1+; Microcytosis Slight; Platelet Estimate Adequate
[2017-07-31] MEDS ORDERED: NITROGLYCERIN SL 0.4 MG TABLET SL PRN (10:43)
[2017-07-31] MEDS ORDERED: POTASSIUM CHLORIDE 20 MEQ TABLET PO PRN (10:43)
[2017-07-31] MEDS: VANCOMYCIN INJ 1,000 MG in SODIUM CHLORIDE 0.9% 250 ML IV SCH (14:15)
[2017-07-31] MEDS: BUDESONIDE/FORMOTEROL 160-4.5 INHALER 6 GM INH SCH (21:08)
[2017-07-31] MEDS: ATORVASTATIN 10 MG TABLET PO SCH (21:08)
[2017-07-31] MEDS: buPROPion 75 MG TABLET PO SCH (21:08)
[2017-08-01] MEDS: VANCOMYCIN INJ 1,000 MG in SODIUM CHLORIDE 0.9% 250 ML IV SCH ×2 (02:17→14:18)
[2017-08-01] MEDS ORDERED: ISOSULFAN BLUE 5 ML VIAL SUBCUT ONE (08:11)
[2017-08-01] MEDS ORDERED: BUPIVACAINE 0.5% 50 ML VIAL ONE (08:12)
[2017-08-01] MEDS: PANTOPRAZOLE 40 MG TABLET PO SCH ×3 (08:15→20:49)
[2017-08-01] MEDS: ASPIRIN EC 81 MG TABLET PO SCH (08:15)
[2017-08-01] MEDS: CLOPIDOGREL 75 MG TABLET PO SCH (08:15)
[2017-08-01] MEDS: TAMSULOSIN 0.4 MG CAPSULE PO SCH (08:15)
[2017-08-01] MEDS: BUDESONIDE/FORMOTEROL 160-4.5 INHALER 6 GM INH SCH ×2 (08:16→20:54)
[2017-08-01] MEDS: buPROPion 75 MG TABLET PO SCH ×2 (08:16→20:49)
[2017-08-01] MEDS ORDERED: ONDANSETRON 4 MG/2 ML VIAL ONE ×2 (09:32→09:58)
[2017-08-01] MEDS ORDERED: SEVOFLURANE 1 UNIT/15 MINUTE INH ONE (09:32)
[2017-08-01] MEDS ORDERED: ETOMIDATE 40 MG/20 ML VIAL IV ONE (09:32)
[2017-08-01] MEDS ORDERED: fentaNYL 100 MCG/2 ML VIAL ONE (09:32)
[2017-08-01] MEDS ORDERED: MEPERIDINE 25 MG/1 ML VIAL ONE (09:58)
[2017-08-01] MEDS ORDERED: HYDROmorphone 2 MG/1 ML VIAL IV PRN (10:00)
[2017-08-01] MEDS ORDERED: MEPERIDINE 25 MG/1 ML VIAL IV PRN (10:00)
[2017-08-01] MEDS ORDERED: ONDANSETRON 4 MG/2 ML VIAL IV PRN (10:00)
[2017-08-01] MEDS: ATORVASTATIN 10 MG TABLET PO SCH (20:49)
[2017-08-02] MEDS: VANCOMYCIN INJ 1,250 MG in SODIUM CHLORIDE 0.9% 250 ML IV SCH ×2 (01:23→14:23)
[2017-08-02 05:33] LABS: Basophils % 0.4 % (0.0-0.8); Eosinophils # 0.1 10*3/uL (0.0-0.87); Eosinophils % 1.7 % (0.00-10.9); Hematocrit 28.4 VOL% (42.0-52.0); Hemoglobin 8.5 GM/DL (14.0-18.0); Immature Granulocytes % 0.6 %; Immature Granulocytes Absolute 0.05 #; Lymphocytes # 1.4 10*3/uL (1.4-4.0); Lymphocytes % 17.8 % (21.2-54.2); Mean Corpuscular HGB Conc 29.9 GM/DL (32-36); Mean Corpuscular Hemoglobin 24 PG (27-34); Mean Corpuscular Volume 78.7 FL (87-102); Mean Platelet Volume 9.5 FL (9.6-12.0); Monocytes # 0.9 10*3/uL (0.11-0.8); Monocytes % 11.9 % (1.7-12.7); Neutrophils # 5.3 10*3/uL (1.4-7.4); Neutrophils % 67.6 % (38.7-73.9); Platelet Count 239 T/CUMM (130-400); Red Blood Count 3.61 MC/CUMM (3.8-5.5); Red Cell Distribution Width 21.5 % (9.3-17.3); White Blood Count 7.8 T/CUMM (4-12)
[2017-08-02 06:10] LABS: Calcium 8.5 MG/DL (8.5-10.1); Osmolality,Calculated 272.7 MOS/KG (273-304); Potassium 4.4 MMOL/L (3.5-5.1)
[2017-08-02] MEDS: ASPIRIN EC 81 MG TABLET PO SCH (09:09)
[2017-08-02] MEDS: CLOPIDOGREL 75 MG TABLET PO SCH (09:10)
[2017-08-02] MEDS: TAMSULOSIN 0.4 MG CAPSULE PO SCH (09:10)
[2017-08-02] MEDS: BUDESONIDE/FORMOTEROL 160-4.5 INHALER 6 GM INH SCH ×2 (09:11→21:01)
[2017-08-02] MEDS: buPROPion 75 MG TABLET PO SCH ×2 (09:11→21:01)
[2017-08-02] MEDS: PANTOPRAZOLE 40 MG TABLET PO SCH ×2 (09:11→21:01)
[2017-08-02] MEDS: MEGESTROL 40 MG TABLET PO SCH ×2 (14:20→21:01)
[2017-08-02] MEDS: ATORVASTATIN 10 MG TABLET PO SCH (21:01)
[2017-08-03] MEDS: VANCOMYCIN INJ 1,250 MG in SODIUM CHLORIDE 0.9% 250 ML IV SCH (01:44)
[2017-08-03] MEDS: CLOPIDOGREL 75 MG TABLET PO SCH (08:37)
[2017-08-03] MEDS: buPROPion 75 MG TABLET PO SCH ×2 (08:37→21:22)
[2017-08-03] MEDS: TAMSULOSIN 0.4 MG CAPSULE PO SCH (08:37)
[2017-08-03] MEDS: PANTOPRAZOLE 40 MG TABLET PO SCH ×2 (08:37→21:21)
[2017-08-03] MEDS: MEGESTROL 40 MG TABLET PO SCH ×3 (08:49→21:22)
[2017-08-03] MEDS: ASPIRIN EC 81 MG TABLET PO SCH (08:49)
[2017-08-03] MEDS: BUDESONIDE/FORMOTEROL 160-4.5 INHALER 6 GM INH SCH ×2 (08:49→21:22)
[2017-08-03] MEDS: AMPICILLIN/SULBACTAM 3,000 MG in SODIUM CHLORIDE 0.9% 100 ML IV SCH ×2 (10:28→17:20)
[2017-08-03] MEDS: ATORVASTATIN 10 MG TABLET PO SCH (21:22)
[2017-08-04] MEDS: AMPICILLIN/SULBACTAM 3,000 MG in SODIUM CHLORIDE 0.9% 100 ML IV SCH ×3 (00:29→17:11)
[2017-08-04] MEDS: TAMSULOSIN 0.4 MG CAPSULE PO SCH (08:47)
[2017-08-04] MEDS: PANTOPRAZOLE 40 MG TABLET PO SCH ×2 (08:47→20:36)
[2017-08-04] MEDS: MEGESTROL 40 MG TABLET PO SCH ×3 (08:47→20:36)
[2017-08-04] MEDS: ASPIRIN EC 81 MG TABLET PO SCH (08:47)
[2017-08-04] MEDS: CLOPIDOGREL 75 MG TABLET PO SCH (08:47)
[2017-08-04] MEDS: buPROPion 75 MG TABLET PO SCH ×2 (08:48→20:36)
[2017-08-04] MEDS: BUDESONIDE/FORMOTEROL 160-4.5 INHALER 6 GM INH SCH ×2 (08:48→20:36)
[2017-08-04] MEDS: ATORVASTATIN 10 MG TABLET PO SCH (20:36)
[2017-08-05] MEDS: AMPICILLIN/SULBACTAM 3,000 MG in SODIUM CHLORIDE 0.9% 100 ML IV SCH ×3 (01:00→17:07)
[2017-08-05 05:06] LABS: Hematocrit 27.6 VOL% (42.0-52.0); Hemoglobin 8.7 GM/DL (14.0-18.0)
[2017-08-05] MEDS: BUDESONIDE/FORMOTEROL 160-4.5 INHALER 6 GM INH SCH ×2 (08:52→20:30)
[2017-08-05] MEDS: CLOPIDOGREL 75 MG TABLET PO SCH (08:52)
[2017-08-05] MEDS: MEGESTROL 40 MG TABLET PO SCH ×3 (08:52→20:30)
[2017-08-05] MEDS: buPROPion 75 MG TABLET PO SCH ×2 (08:52→20:30)
[2017-08-05] MEDS: ASPIRIN EC 81 MG TABLET PO SCH (08:52)
[2017-08-05] MEDS: TAMSULOSIN 0.4 MG CAPSULE PO SCH (08:52)
[2017-08-05] MEDS: PANTOPRAZOLE 40 MG TABLET PO SCH ×2 (08:52→20:30)
[2017-08-05] MEDS: ATORVASTATIN 10 MG TABLET PO SCH (20:30)
[2017-08-06] MEDS: AMPICILLIN/SULBACTAM 3,000 MG in SODIUM CHLORIDE 0.9% 100 ML IV SCH ×2 (00:37→08:49)
[2017-08-06] MEDS: BUDESONIDE/FORMOTEROL 160-4.5 INHALER 6 GM INH SCH ×2 (08:48→20:14)
[2017-08-06] MEDS: TAMSULOSIN 0.4 MG CAPSULE PO SCH (08:48)
[2017-08-06] MEDS: ASPIRIN EC 81 MG TABLET PO SCH (08:49)
[2017-08-06] MEDS: MEGESTROL 40 MG TABLET PO SCH ×3 (08:49→20:14)
[2017-08-06] MEDS: buPROPion 75 MG TABLET PO SCH ×2 (08:49→20:14)
[2017-08-06] MEDS: CLOPIDOGREL 75 MG TABLET PO SCH (08:49)
[2017-08-06] MEDS: PANTOPRAZOLE 40 MG TABLET PO SCH ×2 (08:49→20:14)
[2017-08-06] MEDS: ERTAPENEM 1,000 MG in SODIUM CHLORIDE 0.9% 100 ML IV SCH (13:02)
[2017-08-07] MEDS: BUDESONIDE/FORMOTEROL 160-4.5 INHALER 6 GM INH SCH ×2 (09:30→20:31)
[2017-08-07] MEDS: TAMSULOSIN 0.4 MG CAPSULE PO SCH (09:31)
[2017-08-07] MEDS: CLOPIDOGREL 75 MG TABLET PO SCH (09:31)
[2017-08-07] MEDS: buPROPion 75 MG TABLET PO SCH ×2 (09:31→20:31)
[2017-08-07] MEDS: ASPIRIN EC 81 MG TABLET PO SCH (09:31)
[2017-08-07] MEDS: PANTOPRAZOLE 40 MG TABLET PO SCH ×2 (09:31→20:31)
[2017-08-07] MEDS: MEGESTROL 40 MG TABLET PO SCH ×3 (09:31→20:31)
[2017-08-07] MEDS: ERTAPENEM 1,000 MG in SODIUM CHLORIDE 0.9% 100 ML IV SCH (12:05)
[2017-08-08] MEDS: ASPIRIN EC 81 MG TABLET PO SCH (10:14)
[2017-08-08] MEDS: TAMSULOSIN 0.4 MG CAPSULE PO SCH (10:14)
[2017-08-08] MEDS: PANTOPRAZOLE 40 MG TABLET PO SCH (10:15)
[2017-08-08] MEDS: buPROPion 75 MG TABLET PO SCH (10:15)
[2017-08-08] MEDS: MEGESTROL 40 MG TABLET PO SCH ×2 (10:15→16:12)
[2017-08-08] MEDS: CLOPIDOGREL 75 MG TABLET PO SCH (10:15)
[2017-08-08] MEDS: BUDESONIDE/FORMOTEROL 160-4.5 INHALER 6 GM INH SCH (10:20)
[2017-08-08 11:30] VITALS: BP 104/68
[2017-08-08] MEDS: ERTAPENEM 1,000 MG in SODIUM CHLORIDE 0.9% 100 ML IV SCH (12:15)
== END 2017-08-08 17:26 | disposition home health service (06) | DRG 857 ==
LOC: EDUNIT# → EDBD → N.ED 22:54 → N.EDINP 07-31 01:15 → N.3E 07-31 02:01
PROVIDERS: ADMIT Surgery; ATTEND Surgery

== ENCOUNTER 2021-11-14 16:02 | Inpatient (IN) ==
[2021-11-14] MEDS ORDERED: ONDANSETRON 4 MG/2 ML VIAL IV STA (19:36)
[2021-11-14] MEDS ORDERED: LACTATED RINGERS 1,000 ML IV ONE (19:39)
[2021-11-14 19:55] LABS: Basophils % 0.2 % (0.0-0.8); Eosinophils % 0.1 % (0.00-10.9); Hematocrit 37.3 VOL% (42.0-52.0); Hemoglobin 11.8 GM/DL (14.0-18.0); Immature Granulocytes % 0.6 %; Immature Granulocytes Absolute 0.13 #; Lymphocytes # 0.7 10*3/uL (1.4-4.0); Lymphocytes % 3.3 % (21.2-54.2); Mean Corpuscular HGB Conc 31.6 GM/DL (32-36); Mean Corpuscular Volume 85.7 FL (87-102); Mean Platelet Volume 11.1 FL (9.6-12.0); Monocytes # 0.6 10*3/uL (0.11-0.8); Monocytes % 2.9 % (1.7-12.7); Neutrophils % 92.9 % (38.7-73.9); Platelet Count 87 T/CUMM (130-400); Red Blood Count 4.35 MC/CUMM (3.8-5.5); Red Cell Distribution Width 16.5 % (9.3-17.3)
[2021-11-14 20:16] LABS: Lymphocytes 2 % (20-55); Total Cells Counted 100
[2021-11-14 20:20] LABS: Platelet Estimate Decreased
[2021-11-14 20:24] LABS: Alanine Aminotransferase 18 U/L (16-61); Albumin 2.3 G/DL (3.4-5.0); Alkaline Phosphatase 155 U/L (45-117); Aspartate Amino Transferase 42 U/L (0-37); Blood Urea Nitrogen 36 MG/DL (7-18); Calcium 8.8 MG/DL (8.5-10.1); Carbon Dioxide 29 MMOL/L (21-32); Chloride 101 MMOL/L (98-107); Glucose 111 MG/DL (74-106); Osmolality,Calculated 283.7 MOS/KG (273-304); Potassium 3.8 MMOL/L (3.5-5.1); Sodium 138 MMOL/L (136-145); Total Protein 6.1 G/DL (6.4-8.2)
[2021-11-14] MEDS ORDERED: SODIUM CHLORIDE 0.9% 1,000 ML IV STA (20:28)
[2021-11-14] MEDS ORDERED: PIPERACILLIN/TAZOBACTAM 3,375 MG in SODIUM CHLORIDE 0.9% 100 ML IV STA (20:28)
[2021-11-14] MEDS ORDERED: SODIUM CHLORIDE 0.9% 100 ML IV STA (21:09)
[2021-11-14] MEDS ORDERED: DOPamine 800 MG/250 ML PREMIX IV ONE (21:57)
[2021-11-14] MEDS: DOPamine 800 MG/250 ML PREMIX IV PRN (22:00)
[2021-11-14] MEDS ORDERED: ALBUTEROL 2.5 MG/3 ML NEB RESP TX PRN (22:05)
[2021-11-14] MEDS ORDERED: ONDANSETRON 4 MG/2 ML VIAL IV PRN (22:07)
[2021-11-14] MEDS ORDERED: ACETAMINOPHEN 325 MG TABLET PO PRN (22:07)
[2021-11-14] MEDS ORDERED: guaiFENesin/DM ER 600-30 MG TABLET PO PRN (22:07)
[2021-11-14] MEDS ORDERED: AZITHROMYCIN 250 MG TABLET PO STA (22:09)
[2021-11-14] MEDS ORDERED: QUEtiapine 100 MG TABLET PO SCH (22:15)
[2021-11-14] MEDS ORDERED: ALBUMIN 25% 50 GM/200 ML VIAL IV ONE (22:28)
[2021-11-14] MEDS: HYDROCORTISONE 100 MG VIAL IV SCH (22:50)
[2021-11-14] MEDS: LACTATED RINGERS 1,000 ML IV SCH (23:50)
[2021-11-14] MEDS: cefTRIAXone 1,000 MG in SODIUM CHLORIDE 0.9% 100 ML IV SCH (23:50)
[2021-11-15] MEDS: ALBUTEROL/IPRATROPIUM 3 ML NEB RESP TX SCH ×4 (02:04→19:15)
[2021-11-15 03:10] VITALS: BP 107/65
[2021-11-15 03:50] LABS: Bacteria,Urine Occasional /HPF (Few); Bilirubin,Urine Small mg/dL (Negative); Glucose,Urine (UA) Negative (Negative); Hyaline Casts,Urine 5 /LPF (0-3); Ketones,Urine Negative (Negative); Mucus,Urine Occasional /LPF (Occasional); Nitrite,Urine Negative (Negative); Protein,Urine Trace mg/dL (Negative); RBC,Urine 2 /HPF (0-4); Urine Appearance Clear (Clear); Urine Color Yellow (Yellow); Urine pH 5.5 (4.5-8.0)
[2021-11-15 03:51] LABS: Blood, Urine Negative (Negative)
[2021-11-15 05:37] LABS: Basophils % 0.2 % (0.0-0.8); Hematocrit 33.4 VOL% (42.0-52.0); Hemoglobin 10.4 GM/DL (14.0-18.0); Immature Granulocytes % 0.5 %; Immature Granulocytes Absolute 0.07 #; Lymphocytes # 0.6 10*3/uL (1.4-4.0); Lymphocytes % 4.8 % (21.2-54.2); Mean Corpuscular HGB Conc 31.1 GM/DL (32-36); Mean Corpuscular Volume 86.1 FL (87-102); Monocytes # 0.2 10*3/uL (0.11-0.8); Monocytes % 1.6 % (1.7-12.7); Neutrophils % 92.9 % (38.7-73.9); Platelet Count 70 T/CUMM (130-400); Red Blood Count 3.88 MC/CUMM (3.8-5.5); Red Cell Distribution Width 16.5 % (9.3-17.3); White Blood Count 13.2 T/CUMM (4-12)
[2021-11-15 05:42] LABS: INR 1.2; PT Patient Result 13.1 SECS (10.1-12.1)
[2021-11-15 06:00] LABS: Band Neutrophils 1 % (0-10); Hypochromia Slight; Lymphocytes 3 % (20-55); Microcytosis Slight; Platelet Estimate Decreased; Total Cells Counted 100
[2021-11-15 06:02] LABS: Albumin 2.8 G/DL (3.4-5.0); Bilirubin,Total 1.1 MG/DL (0.20-1.00); Calcium 8.3 MG/DL (8.5-10.1); Osmolality,Calculated 286.5 MOS/KG (273-304); Potassium 3.9 MMOL/L (3.5-5.1); Total Protein 6.2 G/DL (6.4-8.2)
[2021-11-15] MEDS: HYDROCORTISONE 100 MG VIAL IV SCH ×2 (06:42→15:34)
[2021-11-15] MEDS: LACTATED RINGERS 1,000 ML IV SCH ×3 (06:42→23:01)
[2021-11-15] MEDS ORDERED: PANTOPRAZOLE 40 MG TABLET PO SCH (09:00)
[2021-11-15] MEDS: ASPIRIN EC 81 MG TABLET PO SCH (09:55)
[2021-11-15] MEDS: FAMOTIDINE 20 MG TABLET PO SCH ×2 (09:55→21:35)
[2021-11-15] MEDS: buPROPion 75 MG TABLET PO SCH (09:55)
[2021-11-15] MEDS: AZITHROMYCIN 250 MG TABLET PO SCH (09:55)
[2021-11-15] MEDS: DOPamine 800 MG/250 ML PREMIX IV PRN (15:35)
[2021-11-16] MEDS: ALBUTEROL/IPRATROPIUM 3 ML NEB RESP TX SCH ×4 (00:03→19:12)
[2021-11-16] MEDS: cefTRIAXone 1,000 MG in SODIUM CHLORIDE 0.9% 100 ML IV SCH ×2 (02:08→22:57)
[2021-11-16] MEDS: HYDROCORTISONE 100 MG VIAL IV SCH ×4 (02:08→22:58)
[2021-11-16 05:15] LABS: Basophils % 0.1 % (0.0-0.8); Hemoglobin 11.1 GM/DL (14.0-18.0); Immature Granulocytes % 1.5 %; Lymphocytes # 0.4 10*3/uL (1.4-4.0); Mean Corpuscular HGB Conc 31.7 GM/DL (32-36); Mean Corpuscular Volume 85.4 FL (87-102); Mean Platelet Volume 10.8 FL (9.6-12.0); Monocytes # 0.4 10*3/uL (0.11-0.8); Monocytes % 3.1 % (1.7-12.7); Neutrophils % 92.3 % (38.7-73.9); Platelet Count 78 T/CUMM (130-400); Red Cell Distribution Width 16.5 % (9.3-17.3); White Blood Count 13.6 T/CUMM (4-12)
[2021-11-16 05:27] LABS: Calcium 8.7 MG/DL (8.5-10.1); Osmolality,Calculated 285.4 MOS/KG (273-304)
[2021-11-16 05:59] LABS: Band Neutrophils 1 % (0-10); Lymphocytes 3 % (20-55); Platelet Estimate Decreased; Total Cells Counted 100
[2021-11-16 06:00] LABS: Hypochromia Slight; Microcytosis Slight
[2021-11-16] MEDS: LACTATED RINGERS 1,000 ML IV SCH ×2 (06:22→15:15)
[2021-11-16] MEDS: buPROPion 75 MG TABLET PO SCH (08:11)
[2021-11-16] MEDS: AZITHROMYCIN 250 MG TABLET PO SCH (08:11)
[2021-11-16] MEDS: ASPIRIN EC 81 MG TABLET PO SCH (08:11)
[2021-11-16] MEDS: FAMOTIDINE 20 MG TABLET PO SCH ×2 (08:11→20:38)
[2021-11-16 10:07] LABS: Folate 1.51 NG/ML (5.38-24.0)
[2021-11-16] MEDS ORDERED: QUEtiapine 25 MG TABLET PO PRN (10:57)
[2021-11-16] MEDS: FOLIC ACID 1 MG TABLET PO SCH (12:32)
[2021-11-17] MEDS: ALBUTEROL/IPRATROPIUM 3 ML NEB RESP TX SCH ×4 (00:25→19:05)
[2021-11-17] MEDS: LACTATED RINGERS 1,000 ML IV SCH ×3 (01:43→18:57)
[2021-11-17 06:00] LABS: Basophils % 0.2 % (0.0-0.8); Hematocrit 31.2 VOL% (42.0-52.0); Hemoglobin 9.9 GM/DL (14.0-18.0); Immature Granulocytes % 0.8 %; Lymphocytes # 0.1 10*3/uL (1.4-4.0); Lymphocytes % 0.6 % (21.2-54.2); Mean Corpuscular HGB Conc 31.7 GM/DL (32-36); Mean Corpuscular Volume 85.7 FL (87-102); Mean Platelet Volume 11.1 FL (9.6-12.0); Monocytes # 0.2 10*3/uL (0.11-0.8); Monocytes % 1.2 % (1.7-12.7); Neutrophils % 97.2 % (38.7-73.9); Platelet Count 85 T/CUMM (130-400); Red Blood Count 3.64 MC/CUMM (3.8-5.5); Red Cell Distribution Width 16.5 % (9.3-17.3)
[2021-11-17 06:11] LABS: Albumin 2.1 G/DL (3.4-5.0); Bilirubin,Total 0.6 MG/DL (0.20-1.00); Calcium 8.2 MG/DL (8.5-10.1); Osmolality,Calculated 287.8 MOS/KG (273-304); Potassium 3.5 MMOL/L (3.5-5.1); Total Protein 5.1 G/DL (6.4-8.2)
[2021-11-17 06:27] LABS: Band Neutrophils 2 % (0-10); Platelet Estimate Decreased; Total Cells Counted 100
[2021-11-17 06:28] LABS: Hypochromia Slight; Microcytosis Slight
[2021-11-17] MEDS: FAMOTIDINE 20 MG TABLET PO SCH ×2 (08:37→21:14)
[2021-11-17] MEDS: buPROPion 75 MG TABLET PO SCH (08:37)
[2021-11-17] MEDS: FOLIC ACID 1 MG TABLET PO SCH (08:38)
[2021-11-17] MEDS: ASPIRIN EC 81 MG TABLET PO SCH (08:38)
[2021-11-17] MEDS: AZITHROMYCIN 250 MG TABLET PO SCH (08:38)
[2021-11-17] MEDS: HYDROCORTISONE 100 MG VIAL IV SCH ×3 (08:39→23:05)
[2021-11-17] MEDS: DOPamine 800 MG/250 ML PREMIX IV PRN (11:59)
[2021-11-17] MEDS: cefTRIAXone 1,000 MG in SODIUM CHLORIDE 0.9% 100 ML IV SCH (23:05)
[2021-11-18] MEDS: ALBUTEROL/IPRATROPIUM 3 ML NEB RESP TX SCH ×4 (00:18→19:41)
[2021-11-18] MEDS: LACTATED RINGERS 1,000 ML IV SCH (03:01)
[2021-11-18 05:08] LABS: Basophils % 0.2 % (0.0-0.8); Hematocrit 30.9 VOL% (42.0-52.0); Hemoglobin 9.6 GM/DL (14.0-18.0); Immature Granulocytes % 0.3 %; Immature Granulocytes Absolute 0.03 #; Lymphocytes # 0.3 10*3/uL (1.4-4.0); Lymphocytes % 2.4 % (21.2-54.2); Mean Corpuscular HGB Conc 31.1 GM/DL (32-36); Mean Corpuscular Volume 86.1 FL (87-102); Mean Platelet Volume 11.6 FL (9.6-12.0); Monocytes # 0.2 10*3/uL (0.11-0.8); Monocytes % 1.7 % (1.7-12.7); Neutrophils % 95.4 % (38.7-73.9); Platelet Count 84 T/CUMM (130-400); Red Blood Count 3.59 MC/CUMM (3.8-5.5); Red Cell Distribution Width 16.5 % (9.3-17.3); White Blood Count 11.7 T/CUMM (4-12)
[2021-11-18 05:27] LABS: Calcium 8.1 MG/DL (8.5-10.1); Osmolality,Calculated 287.1 MOS/KG (273-304); Potassium 3.8 MMOL/L (3.5-5.1)
[2021-11-18 05:34] LABS: Lymphocytes 1 % (20-55); Platelet Estimate Decreased; Total Cells Counted 100
[2021-11-18 05:35] LABS: Hypochromia Slight; Microcytosis Slight
[2021-11-18] MEDS ORDERED: POTASSIUM PHOSPHATE 30 MMOL in SODIUM CHLORIDE 0.9% 250 ML IV ONE (07:30)
[2021-11-18] MEDS: HYDROCORTISONE 100 MG VIAL IV SCH ×2 (08:47→20:05)
[2021-11-18] MEDS: ASPIRIN EC 81 MG TABLET PO SCH (08:48)
[2021-11-18] MEDS: FAMOTIDINE 20 MG TABLET PO SCH ×2 (08:48→20:05)
[2021-11-18] MEDS: FOLIC ACID 1 MG TABLET PO SCH (08:48)
[2021-11-18] MEDS: AZITHROMYCIN 250 MG TABLET PO SCH (08:48)
[2021-11-18] MEDS: buPROPion 75 MG TABLET PO SCH (08:48)
[2021-11-18] MEDS ORDERED: HYDROCORTISONE 100 MG VIAL IV SCH (09:00)
[2021-11-18] MEDS: cefTRIAXone 1,000 MG in SODIUM CHLORIDE 0.9% 100 ML IV SCH (22:51)
[2021-11-19] MEDS: ALBUTEROL/IPRATROPIUM 3 ML NEB RESP TX SCH ×3 (00:41→12:31)
[2021-11-19 04:16] LABS: Basophils % 0.2 % (0.0-0.8); Hemoglobin 10.8 GM/DL (14.0-18.0); Immature Granulocytes % 0.6 %; Immature Granulocytes Absolute 0.12 #; Lymphocytes # 0.4 10*3/uL (1.4-4.0); Lymphocytes % 2.3 % (21.2-54.2); Mean Corpuscular HGB Conc 31.8 GM/DL (32-36); Mean Corpuscular Volume 84.4 FL (87-102); Mean Platelet Volume 10.9 FL (9.6-12.0); Monocytes # 0.5 10*3/uL (0.11-0.8); Monocytes % 2.5 % (1.7-12.7); Neutrophils % 94.4 % (38.7-73.9); Platelet Count 113 T/CUMM (130-400); Red Blood Count 4.03 MC/CUMM (3.8-5.5); Red Cell Distribution Width 16.6 % (9.3-17.3); White Blood Count 18.7 T/CUMM (4-12)
[2021-11-19 04:33] LABS: Osmolality,Calculated 286.1 MOS/KG (273-304); Potassium 3.7 MMOL/L (3.5-5.1)
[2021-11-19 04:45] LABS: Lymphocytes 3 % (20-55); Total Cells Counted 100
[2021-11-19 04:46] LABS: Hypochromia Slight; Microcytosis Slight; Platelet Estimate Adequate
[2021-11-19] MEDS ORDERED: MAGNESIUM SULF RIDER 2 GM/50 ML PREMIX IV ONE (07:51)
[2021-11-19] MEDS: FAMOTIDINE 20 MG TABLET PO SCH (08:15)
[2021-11-19] MEDS: HYDROCORTISONE 100 MG VIAL IV SCH (08:15)
[2021-11-19] MEDS: buPROPion 75 MG TABLET PO SCH (08:15)
[2021-11-19] MEDS: AZITHROMYCIN 250 MG TABLET PO SCH (08:15)
[2021-11-19] MEDS: FOLIC ACID 1 MG TABLET PO SCH (08:15)
[2021-11-19] MEDS: ASPIRIN EC 81 MG TABLET PO SCH (08:15)
== END 2021-11-19 14:20 | disposition home or self-care (01) | DRG 871 ==
LOC: N.ED 16:02 → N.EDINP 22:06 → N.CC 11-15 02:37
PROVIDERS: ADMIT Internal Medicine; ATTEND Internal Medicine

== ENCOUNTER 2022-02-04 09:36 | Inpatient (IN) ==
[2022-02-04] MEDS ORDERED: MORPHINE 2 MG/1 ML SYRINGE IV ONE (09:58)
[2022-02-04] MEDS ORDERED: ONDANSETRON 4 MG/2 ML VIAL IV ONE (09:58)
[2022-02-04 11:06] LABS: Basophils % 0.3 % (0.0-0.8); Hematocrit 32.6 VOL% (42.0-52.0); Immature Granulocytes % 0.6 %; Immature Granulocytes Absolute 0.09 #; Lymphocytes # 1.5 10*3/uL (1.4-4.0); Lymphocytes % 9.5 % (21.2-54.2); Mean Corpuscular HGB Conc 30.7 GM/DL (32-36); Mean Corpuscular Volume 84.9 FL (87-102); Mean Platelet Volume 10.4 FL (9.6-12.0); Monocytes # 1.3 10*3/uL (0.11-0.8); Monocytes % 8.8 % (1.7-12.7); Neutrophils % 80.8 % (38.7-73.9); Platelet Count 239 T/CUMM (130-400); Red Blood Count 3.84 MC/CUMM (3.8-5.5); Red Cell Distribution Width 16.4 % (9.3-17.3); White Blood Count 15.2 T/CUMM (4-12)
[2022-02-04 11:15] LABS: PT Patient Result 11.1 SECS (10.1-12.1)
[2022-02-04] MEDS ORDERED: ONDANSETRON 4 MG/2 ML VIAL IV PRN (11:22)
[2022-02-04] MEDS ORDERED: ACETAMINOPHEN 325 MG TABLET PO PRN (11:22)
[2022-02-04] MEDS ORDERED: BISACODYL 5 MG TABLET PO PRN (11:22)
[2022-02-04] MEDS ORDERED: NITROGLYCERIN SL 0.4 MG TABLET SL PRN (11:25)
[2022-02-04 11:27] LABS: Albumin 2.1 G/DL (3.4-5.0); Bilirubin,Total 0.8 MG/DL (0.20-1.00); Calcium 9.1 MG/DL (8.5-10.1); Potassium 4.3 MMOL/L (3.5-5.1); Total Protein 6.6 G/DL (6.4-8.2)
[2022-02-04 13:17] LABS: Bilirubin,Urine Negative (Negative); Blood, Urine Negative (Negative); Glucose,Urine (UA) Negative (Negative); Ketones,Urine Negative (Negative); Mucus,Urine Many /LPF (Occasional); Nitrite,Urine Negative (Negative); Protein,Urine 30 mg/dL (Negative); RBC,Urine 1 /HPF (0-4); Squamous Epithelial Cell,Urine Occasional /HPF (0-10); Urine Appearance CLEAR (Clear); Urine Color Yellow (Yellow)
[2022-02-04] MEDS ORDERED: QUEtiapine 25 MG TABLET PO PRN (15:48)
[2022-02-04] MEDS: ATORVASTATIN 10 MG TABLET PO SCH (20:39)
[2022-02-04] MEDS: carvediloL 6.25 MG TABLET PO SCH (20:39)
[2022-02-04] MEDS: DOCUSATE SODIUM 100 MG CAPSULE PO SCH (20:39)
[2022-02-05 06:00] LABS: Basophils % 0.2 % (0.0-0.8); Eosinophils # 0.1 10*3/uL (0.0-0.87); Eosinophils % 0.5 % (0.00-10.9); Hematocrit 27.5 VOL% (42.0-52.0); Hemoglobin 8.5 GM/DL (14.0-18.0); Immature Granulocytes % 0.5 %; Immature Granulocytes Absolute 0.06 #; Lymphocytes # 1.2 10*3/uL (1.4-4.0); Mean Corpuscular HGB Conc 30.9 GM/DL (32-36); Mean Corpuscular Volume 85.1 FL (87-102); Mean Platelet Volume 9.2 FL (9.6-12.0); Monocytes % 7.7 % (1.7-12.7); Neutrophils % 82.1 % (38.7-73.9); Platelet Count 215 T/CUMM (130-400); Red Blood Count 3.23 MC/CUMM (3.8-5.5); White Blood Count 13.1 T/CUMM (4-12)
[2022-02-05 06:19] LABS: % Iron Saturation 10.9 % (18-50); Ferritin 320.1 ng/mL (26-388)
[2022-02-05] MEDS ORDERED: ONDANSETRON 4 MG/2 ML VIAL IV PRN (06:23)
[2022-02-05] MEDS ORDERED: HYDROmorphone 1 MG/1 ML SYRINGE IV PRN (06:23)
[2022-02-05] MEDS ORDERED: PROMETHAZINE INJ 25 MG in SODIUM CHLORIDE 0.9% 50 ML IV PRN (06:23)
[2022-02-05] MEDS ORDERED: MEPERIDINE 25 MG/1 ML VIAL IV PRN (06:23)
[2022-02-05] MEDS: MORPHINE 2 MG/1 ML SYRINGE IV PRN ×2 (06:24→21:05)
[2022-02-05] MEDS ORDERED: fentaNYL 100 MCG/2 ML VIAL ONE (06:29)
[2022-02-05 06:32] LABS: Calcium 9.1 MG/DL (8.5-10.1); Osmolality,Calculated 277.4 MOS/KG (273-304); Potassium 4.7 MMOL/L (3.5-5.1)
[2022-02-05] MEDS ORDERED: BUPIVACAINE MPF 0.25% 30 ML VIAL ONE (06:44)
[2022-02-05] MEDS ORDERED: LIDOCAINE 1% 5 ML VIAL ONE (06:44)
[2022-02-05] MEDS ORDERED: PHENYLEPHRINE 10 MG/1 ML VIAL IV ONE (08:04)
[2022-02-05] MEDS ORDERED: ePHEDrine 50 MG/ML VIAL ONE (08:07)
[2022-02-05] MEDS ORDERED: ceFAZolin 1,000 MG VIAL ONE (08:30)
[2022-02-05] MEDS ORDERED: SODIUM CHLORIDE 0.9% 100 ML IV ONE (08:52)
[2022-02-05] MEDS ORDERED: propofoL 200 MG/20 ML VIAL IV ONE (08:52)
[2022-02-05] MEDS ORDERED: LACTATED RINGERS 1,000 ML IV ONE (08:52)
[2022-02-05] MEDS ORDERED: BUPIVACAINE SPINAL 0.75% 2 ML AMP SPINAL ONE (08:53)
[2022-02-05] MEDS ORDERED: PHENYLEPHRINE 1 MG/10 ML SYRINGE IV ONE ×2 (08:53→09:40)
[2022-02-05 09:26] LABS: Bilirubin,Urine Negative (Negative); Blood, Urine Negative (Negative); Glucose,Urine (UA) Negative (Negative); Ketones,Urine Negative (Negative); Mucus,Urine Many /LPF (Occasional); Nitrite,Urine Negative (Negative); Protein,Urine Negative (Negative); RBC,Urine 1 /HPF (0-4); Squamous Epithelial Cell,Urine Occasional /HPF (0-10); Urine Appearance Slightly Hazy (Clear); Urine Color Amber (Yellow); Urine Specific Gravity 1.021 (1.001-1.035)
[2022-02-05] MEDS: buPROPion 75 MG TABLET PO SCH (09:33)
[2022-02-05] MEDS: DOCUSATE SODIUM 100 MG CAPSULE PO SCH ×2 (09:33→21:00)
[2022-02-05] MEDS: PANTOPRAZOLE 40 MG TABLET PO SCH (09:33)
[2022-02-05] MEDS ORDERED: ALBUMIN 5% 12.5 GM/250 ML VIAL IV ONE ×2 (09:55)
[2022-02-05] MEDS: carvediloL 6.25 MG TABLET PO SCH (10:41)
[2022-02-05] MEDS: FERROUS SULFATE 325 MG TABLET PO SCH (11:07)
[2022-02-05] MEDS: POLYETHYLENE GLYCOL POWDER 17 GM PACK PO SCH (11:07)
[2022-02-05] MEDS ORDERED: SODIUM CHLORIDE 0.9% 500 ML IV ONE (11:08)
[2022-02-05] MEDS: SODIUM CHLORIDE 0.9% 1,000 ML IV SCH (11:30)
[2022-02-05] MEDS: ATORVASTATIN 10 MG TABLET PO SCH (21:00)
[2022-02-05] MEDS: ENOXAPARIN 40 MG/0.4 ML SYRINGE SUBCUT SCH (21:01)
[2022-02-06] MEDS: SODIUM CHLORIDE 0.9% 1,000 ML IV SCH ×2 (05:23→14:15)
[2022-02-06 05:27] LABS: Basophils % 0.3 % (0.0-0.8); Eosinophils # 0.1 10*3/uL (0.0-0.87); Eosinophils % 0.9 % (0.00-10.9); Hematocrit 24.4 VOL% (42.0-52.0); Hemoglobin 7.4 GM/DL (14.0-18.0); Immature Granulocytes % 0.5 %; Immature Granulocytes Absolute 0.06 #; Lymphocytes % 8.5 % (21.2-54.2); Mean Corpuscular HGB Conc 30.3 GM/DL (32-36); Mean Corpuscular Volume 86.8 FL (87-102); Mean Platelet Volume 9.2 FL (9.6-12.0); Monocytes # 0.8 10*3/uL (0.11-0.8); Monocytes % 7.1 % (1.7-12.7); Neutrophils % 82.7 % (38.7-73.9); Platelet Count 194 T/CUMM (130-400); Red Blood Count 2.81 MC/CUMM (3.8-5.5); White Blood Count 11.7 T/CUMM (4-12)
[2022-02-06 05:52] LABS: Calcium 8.9 MG/DL (8.5-10.1); Osmolality,Calculated 274.7 MOS/KG (273-304); Potassium 4.4 MMOL/L (3.5-5.1)
[2022-02-06] MEDS: CHOLECALCIFEROL 1,000 UNIT TABLET PO SCH (09:42)
[2022-02-06] MEDS: PANTOPRAZOLE 40 MG TABLET PO SCH (09:43)
[2022-02-06] MEDS: POLYETHYLENE GLYCOL POWDER 17 GM PACK PO SCH (09:43)
[2022-02-06] MEDS: DOCUSATE SODIUM 100 MG CAPSULE PO SCH ×2 (09:43→21:13)
[2022-02-06] MEDS: ASPIRIN EC 81 MG TABLET PO SCH (09:43)
[2022-02-06] MEDS: FERROUS SULFATE 325 MG TABLET PO SCH (09:43)
[2022-02-06] MEDS: buPROPion 75 MG TABLET PO SCH (09:43)
[2022-02-06] MEDS: ENOXAPARIN 40 MG/0.4 ML SYRINGE SUBCUT SCH (21:13)
[2022-02-06] MEDS: ATORVASTATIN 10 MG TABLET PO SCH (21:13)
[2022-02-07] MEDS: SODIUM CHLORIDE 0.9% 1,000 ML IV SCH ×2 (03:53→22:25)
[2022-02-07 08:21] LABS: Basophils % 0.2 % (0.0-0.8); Eosinophils # 0.2 10*3/uL (0.0-0.87); Eosinophils % 1.8 % (0.00-10.9); Hematocrit 21.4 VOL% (42.0-52.0); Hemoglobin 6.6 GM/DL (14.0-18.0); Immature Granulocytes % 0.8 %; Immature Granulocytes Absolute 0.08 #; Lymphocytes # 0.8 10*3/uL (1.4-4.0); Lymphocytes % 8.1 % (21.2-54.2); Mean Corpuscular HGB Conc 30.8 GM/DL (32-36); Mean Corpuscular Volume 87.3 FL (87-102); Mean Platelet Volume 9.2 FL (9.6-12.0); Monocytes # 0.5 10*3/uL (0.11-0.8); Monocytes % 5.7 % (1.7-12.7); Neutrophils % 83.4 % (38.7-73.9); Platelet Count 193 T/CUMM (130-400); Red Blood Count 2.45 MC/CUMM (3.8-5.5); White Blood Count 9.5 T/CUMM (4-12)
[2022-02-07] MEDS: POLYETHYLENE GLYCOL POWDER 17 GM PACK PO SCH ×2 (08:53→21:20)
[2022-02-07] MEDS: CHOLECALCIFEROL 1,000 UNIT TABLET PO SCH (08:54)
[2022-02-07] MEDS: PANTOPRAZOLE 40 MG TABLET PO SCH (08:54)
[2022-02-07] MEDS: FERROUS SULFATE 325 MG TABLET PO SCH (08:54)
[2022-02-07] MEDS: DOCUSATE SODIUM 100 MG CAPSULE PO SCH ×2 (08:54→21:20)
[2022-02-07] MEDS: buPROPion 75 MG TABLET PO SCH (08:54)
[2022-02-07] MEDS: ASPIRIN EC 81 MG TABLET PO SCH (08:54)
[2022-02-07] MEDS ORDERED: SODIUM CHLORIDE 0.9% 1,000 ML IV PRN (09:11)
[2022-02-07] MEDS ORDERED: SODIUM CHLORIDE 0.9% 500 ML IV SCH (16:00)
[2022-02-07] MEDS ORDERED: SENNA 8.6 MG TABLET PO ONE (18:04)
[2022-02-07] MEDS: CYPROHEPTADINE 4 MG TABLET PO SCH (20:46)
[2022-02-07] MEDS: ATORVASTATIN 10 MG TABLET PO SCH (20:46)
[2022-02-07 22:55] LABS: Hematocrit 34.1 VOL% (42.0-52.0); Hemoglobin 10.5 GM/DL (14.0-18.0)
[2022-02-08] MEDS: ASPIRIN EC 81 MG TABLET PO SCH (08:18)
[2022-02-08] MEDS: DOCUSATE SODIUM 100 MG CAPSULE PO SCH ×2 (08:18→21:12)
[2022-02-08] MEDS: CYPROHEPTADINE 4 MG TABLET PO SCH ×2 (08:18→21:12)
[2022-02-08] MEDS: buPROPion 75 MG TABLET PO SCH (08:18)
[2022-02-08] MEDS: PANTOPRAZOLE 40 MG TABLET PO SCH (08:18)
[2022-02-08] MEDS: CHOLECALCIFEROL 1,000 UNIT TABLET PO SCH (08:18)
[2022-02-08] MEDS: POLYETHYLENE GLYCOL POWDER 17 GM PACK PO SCH ×2 (08:19→21:10)
[2022-02-08] MEDS: LINACLOTIDE 145 MCG CAPSULE PO SCH (09:45)
[2022-02-08] MEDS: SODIUM CHLORIDE 0.9% 1,000 ML IV SCH ×2 (10:47→21:15)
[2022-02-08 11:13] LABS: Basophils % 0.2 % (0.0-0.8); Eosinophils # 0.2 10*3/uL (0.0-0.87); Eosinophils % 1.8 % (0.00-10.9); Hematocrit 33.7 VOL% (42.0-52.0); Hemoglobin 10.6 GM/DL (14.0-18.0); Immature Granulocytes % 0.5 %; Immature Granulocytes Absolute 0.06 #; Lymphocytes # 1.2 10*3/uL (1.4-4.0); Lymphocytes % 10.1 % (21.2-54.2); Mean Corpuscular HGB Conc 31.5 GM/DL (32-36); Mean Corpuscular Volume 85.1 FL (87-102); Mean Platelet Volume 9.1 FL (9.6-12.0); Monocytes # 0.8 10*3/uL (0.11-0.8); Monocytes % 6.6 % (1.7-12.7); Neutrophils % 80.8 % (38.7-73.9); Platelet Count 208 T/CUMM (130-400); Red Blood Count 3.96 MC/CUMM (3.8-5.5); Red Cell Distribution Width 16.7 % (9.3-17.3); White Blood Count 11.4 T/CUMM (4-12)
[2022-02-08 11:28] LABS: Calcium 8.2 MG/DL (8.5-10.1); Osmolality,Calculated 274.5 MOS/KG (273-304); Potassium 3.8 MMOL/L (3.5-5.1)
[2022-02-08] MEDS: ATORVASTATIN 10 MG TABLET PO SCH (21:12)
[2022-02-09 05:11] LABS: Basophils % 0.3 % (0.0-0.8); Eosinophils # 0.3 10*3/uL (0.0-0.87); Eosinophils % 4.1 % (0.00-10.9); Hematocrit 33.4 VOL% (42.0-52.0); Hemoglobin 10.6 GM/DL (14.0-18.0); Immature Granulocytes % 0.4 %; Immature Granulocytes Absolute 0.03 #; Lymphocytes # 0.8 10*3/uL (1.4-4.0); Lymphocytes % 10.5 % (21.2-54.2); Mean Corpuscular HGB Conc 31.7 GM/DL (32-36); Mean Corpuscular Volume 85.2 FL (87-102); Mean Platelet Volume 9.6 FL (9.6-12.0); Monocytes # 0.5 10*3/uL (0.11-0.8); Monocytes % 5.8 % (1.7-12.7); Neutrophils % 78.9 % (38.7-73.9); Platelet Count 179 T/CUMM (130-400); Red Blood Count 3.92 MC/CUMM (3.8-5.5); Red Cell Distribution Width 16.7 % (9.3-17.3)
[2022-02-09 05:28] LABS: Calcium 8.3 MG/DL (8.5-10.1); Osmolality,Calculated 277.3 MOS/KG (273-304); Potassium 3.5 MMOL/L (3.5-5.1)
[2022-02-09] MEDS: ASPIRIN EC 81 MG TABLET PO SCH ×2 (07:49→10:40)
[2022-02-09] MEDS: CYPROHEPTADINE 4 MG TABLET PO SCH ×2 (07:49→10:41)
[2022-02-09] MEDS: buPROPion 75 MG TABLET PO SCH ×2 (07:49→10:41)
[2022-02-09] MEDS: DOCUSATE SODIUM 100 MG CAPSULE PO SCH ×2 (07:49→10:41)
[2022-02-09] MEDS: PANTOPRAZOLE 40 MG TABLET PO SCH ×2 (07:49→10:41)
[2022-02-09] MEDS: LINACLOTIDE 145 MCG CAPSULE PO SCH (07:50)
[2022-02-09] MEDS: POLYETHYLENE GLYCOL POWDER 17 GM PACK PO SCH ×2 (07:50→10:41)
[2022-02-09] MEDS: CHOLECALCIFEROL 1,000 UNIT TABLET PO SCH ×2 (07:50→10:41)
[2022-02-09] MEDS: SODIUM CHLORIDE 0.9% 1,000 ML IV SCH (10:40)
[2022-02-09 11:19] VITALS: BP 94/63
[2022-02-09] MEDS ORDERED: ZINC OXIDE PASTE 113 GM TUBE TOP SCH (21:00)
== END 2022-02-09 15:43 | DRG 481 ==
LOC: EDBD → EDUNIT# → N.ED 09:36 → SUATTDRO 11:22 → N.3E 11:22
PROVIDERS: ADMIT Emergency Medicine; ATTEND Internal Medicine